=== PATIENT | female | born 1995 | race African-American/Black ===

== ENCOUNTER 2018-09-05 07:56 | Emergency (ER) | payer OTHER ==
--- NOTE | 2018-09-05 07:59 | PDOC ---
History of Present Illness - General Chief Complaint: Foreign Body (FB) Stated Complaint: LEFT EAR FB Time Seen by Provider: 09/05/18 07:59 - History of Present Illness Initial Comments: 09/05/18 08:30 Pt presents to the ED complaining of a foriegn body sensation in the left ear after getting a q tip stuck in it. Denies fever, nausea or vomiting or other complaints. Patient has q tip with her, which is missing the tip. Past History - Past Medical History Allergies/Adverse Reactions: Allergies Allergy/AdvReac Type Severity Reaction Status Date / Time No Known Allergies Allergy Verified 11/26/11 21:45 Home Medications: Ambulatory Orders Amoxicillin/Potassium Clav [Amox-Clav 875-125 mg Tablet] 1 each PO BID #10 tablet 09/05/18 - Immunization History Td Vaccination: Yes Immunization Up to Date: Yes - Suicide/Smoking/Psychosocial Hx Smoking Status: No Smoking History: Never smoked Number of Cigarettes Smoked Daily: 0 Cigars Per Day: 0 Hx Alcohol Use: No Drug/Substance Use Hx: No Substance Use Type: None Hx Substance Use Treatment: No Review of Systems - Review of Systems Able to Perform ROS?: Yes Comments:: 09/05/18 08:36 HEENT: + pressure sensation in left ear. + mild ear pain. no nasal congestion Gen: no fever GI: no nausea or vomiting. Neuro: no dizziness or vertigo 09/05/18 08:38 *Physical Exam - Physical Exam Comments: 09/05/18 08:39 Gen: alert, NAD HEENT: L tm: initial--small amount of cotton visible in ear canal. post irrigation: TM visualized, no foreign body present. TM red, bulging and dull. Neck: + cervical LAD. Medical Decision Making - Medical Decision Making 09/05/18 08:40 Pt presents to the ED complaining of foreign body to the L ear canal. Removed by irrigation. TM is very red, dull and bulging, consistent with otitis media, so although the patient is not extremely symptomatic, I will treat with augementin. Will instruct to return to the ED or follow up with ENT for recurrent symptoms. *DC/Admit/Observation/Transfer Diagnosis at time of Disposition: Otitis media Qualifiers: Otitis media type: serous Chronicity: acute Laterality: left Recurrence: non- recurrent Qualified Code(s): H65.02 - Acute serous otitis media, left ear - Discharge Dispostion Disposition: HOME Condition at time of disposition: Good Decision to Admit order: No - Prescriptions Prescriptions: Amoxicillin/Potassium Clav [Amox-Clav 875-125 mg Tablet] 1 each PO BID #10 tablet - Referrals Referrals: Yvan Cervantes MD [Staff Physician] - - Patient Instructions Printed Discharge Instructions: Middle Ear Infection Additional Instructions: you came to the ED because you had a q tip stuck in your ear. It was removed by washing out your ear, but you should follow up with Dr. Cervantes (ENT) if the feeling of being clogged returns. Your ear looks like you have a middle ear infection. Take the antibiotics prescribed until they are all gone. Return to the Ed for severe ear pain, fever, nausea and vomiting, other new or worsening symptoms. make sure you follow up with your primary care doctor. - Post Discharge Activity
[2018-09-05 08:16] VITALS: BP 98/55; PULSE 63; TEMP 98.3; BMI 26.8
== END 2018-09-05 08:49 | disposition home or self-care (01) ==
LOC: FER 07:56
DX: H65.02 Acute serous otitis media, left ear (principal); T16.2XXA Foreign body in left ear, initial encounter; X58.XXXA Exposure to other specified factors, initial encounter; Y93.89 Activity, other specified; Y92.9 Unspecified place or not applicable
CPT/HCPCS: 99281-25